=== PATIENT | female | born 1965 | race African-American/Black ===

== ENCOUNTER → 2018-02-24 | Outpatient (CLI) | payer MEDICAID ==
[~2018-02-24] MED LIST: DIME240C PO; GABA600T2 PO
== END | disposition home or self-care (01) ==
LOC: RAD 17:10
PROVIDERS: ATTEND Family Medicine
DX: M79.605 Pain in left leg (principal); R22.42 Localized swelling, mass and lump, left lower limb; Z88.0 Allergy status to penicillin

== ENCOUNTER → 2018-03-31 | Outpatient (CLI) | payer MEDICAID | END | disposition home or self-care (01) | LOC: RAD 11:47 | PROVIDERS: ATTEND Family Medicine | DX: R60.0 Localized edema (principal); M79.89 Other specified soft tissue disorders; F17.200 Nicotine dependence, unspecified, uncomplicated ==

== ENCOUNTER → 2018-04-08 | Outpatient (CLI) | payer MEDICAID | END | disposition home or self-care (01) | LOC: CVU 08:01 | PROVIDERS: ATTEND Family Medicine | DX: I83.93 Asymptomatic varicose veins of bilateral lower extremities (principal); M79.89 Other specified soft tissue disorders | CPT/HCPCS: 93970 ==

== ENCOUNTER 2020-03-11 14:16 | Outpatient (CLI) | payer MEDICAID ==
[~2020-03-11 14:16] MED LIST changes: -GABA600T2 PO; +GABA600T7 PO
== END 2020-03-11 23:59 | disposition home or self-care (01) ==
LOC: RAD 14:16
PROVIDERS: ATTEND Psychiatry & Neurology Neurology
DX: Z02.9 Encounter for administrative examinations, unspecified (principal)